=== PATIENT | female | born 1975 | race Caucasian/White ===

== ENCOUNTER 2018-11-30 18:00 | Emergency (ER) | payer OTHER, MEDICAID ==
[2018-11-30] MEDS: KETOROLAC 30 MG INJ IM (19:36)
== END 2018-11-30 19:38 | disposition home or self-care (01) ==
LOC: E/R 18:00
DX: S29.011A Strain of muscle and tendon of front wall of thorax, initial encounter (principal); R07.9 Chest pain, unspecified; X58.XXXA Exposure to other specified factors, initial encounter; Y92.9 Unspecified place or not applicable
CPT/HCPCS: 93005; 96372; 99284-25